=== PATIENT | female | born 1965 | race Caucasian/White ===

== ENCOUNTER 2024-02-08 00:20 | Emergency (ER) | payer OTHER ==
[2024-02-08 00:36] VITALS: BP 109/68; PULSE 76; RESP 19; TEMP 97.7; BMI 26.7
[2024-02-08 01:37] LABS: BASO % 0.4 % (0-2.0); EOS % 3.2 % (0-4.5); HEMATOCRIT 40.5 % (32.4-45.2); HEMOGLOBIN 13.6 GM/dL (10.7-15.3); LYMPH % 41.4 % (8-40); MCHC 33.7 g/dl (32.0-36.0); MEAN CELL VOLUME 89.3 fl (80-96); MEAN PLT VOLUME 7.4 fl (7.5-11.1); MONO % 10.3 % (3.8-10.2); NEUT % 44.7 % (42.8-82.8); PLATELET COUNT 256 10^3/uL (134-434); RBC 4.54 M/mm3 (3.60-5.2); RDW 12.7 % (11.6-15.6); WHITE BLOOD COUNT 7.3 K/mm3 (4.0-10.0)
[2024-02-08 01:42] LABS: INR 1.02 (0.83-1.09); PROTHROMBIN TIME (PATIENT) 11.7 SEC (9.7-13.0)
[2024-02-08 02:03] LABS: POTASSIUM 3.8 mmol/L (3.5-5.1)
[2024-02-08 02:05] LABS: CALCIUM 7.8 mg/dL (8.5-10.1)
[2024-02-08 02:06] LABS: ALBUMIN 2.8 g/dl (3.4-5.0); BLOOD UREA NITROGEN 10.9 mg/dL (7-18)
[2024-02-08 02:09] LABS: CREATININE 0.7 mg/dL (0.55-1.3)
[2024-02-08 02:10] LABS: BILIRUBIN,TOTAL 0.2 mg/dL (0.2-1); TOT PROT 5.1 g/dl (6.4-8.2)
[2024-02-08] MEDS ORDERED: ONDANSETRON 4 MG/2 ML VIAL ONE (02:20)
[2024-02-08] MEDS ORDERED: SIMETHICONE 80 MG TAB.CHEW (FP) ONE (02:36)
[2024-02-08] MEDS: SIMETHICONE 80 MG TAB.CHEW (FP) PO PRN (02:51)
[2024-02-08] MEDS: ONDANSETRON 4 MG TABLET PO ONE (02:52)
[2024-02-08] MEDS ORDERED: FAMOTIDINE 20 MG TABLET ONE (03:01)
[2024-02-08] MEDS: FAMOTIDINE 20 MG TABLET PO ONE (03:13)
[2024-02-08] MEDS: ONDANSETRON 4 MG/2 ML VIAL IVPUSH ONE (03:16)
== END 2024-02-08 03:42 | disposition home or self-care (01) ==
LOC: JER 00:20
PROC: 3E033GC Introduction of Other Therapeutic Substance into Peripheral Vein, Percutaneous Approach (ICD-10-PCS; principal; 2024-02-08)
DX: A08.4 Viral intestinal infection, unspecified (principal); R10.13 Epigastric pain; R11.2 Nausea with vomiting, unspecified
CPT/HCPCS: 36415; 71046-TC-FY; 80053; 83690; 84484; 85025; 85610; 93005; 93010; 96374; 99285-25